=== PATIENT | female | born 1940 | race African-American/Black ===

== ENCOUNTER 2018-12-27 02:27 | Emergency (ER) | payer OTHER, MEDICAID ==
[~2018-12-27] VITALS: Ht 160 cm; Wt 73.0 kg
[2018-12-27] MEDS ORDERED: AMLODIPINE 10MG TABLET PO ONE (04:00)
[2018-12-27] MEDS ORDERED: ACETAMINOPHEN 325MG TABLET PO ONE (04:00)
[2018-12-27 06:40] VITALS: BP 145/95
== END 2018-12-27 07:05 | disposition home or self-care (01) ==
LOC: ER 02:27
DX: R51 Headache (principal); R00.2 Palpitations; I10 Essential (primary) hypertension; F03.90 Unspecified dementia, unspecified severity, without behavioral disturbance, psychotic disturbance, mood disturbance, and anxiety
CPT/HCPCS: 93005; 99283

== ENCOUNTER 2019-11-20 08:21 | Emergency (ER) | payer OTHER, MEDICAID ==
[~2019-11-20] VITALS: Ht 165.1 cm; Wt 68.0 kg
[2019-11-20] MEDS ORDERED: ACETAMINOPHEN 325MG TABLET PO STA (09:49)
[2019-11-20 10:12] LABS: BASOPHILS % 0.7 % (0.0-2.0); EOSINOPHILS % 6.3 % (0.0-5.0); HEMATOCRIT. 38.8 % (36.0-48.0); HEMOGLOBIN. 12.8 g/dL (12.0-16.0); LYMPHOCYTES % 32.4 % (20.0-50.0); MEAN CORPUSCULAR HEMOGLOBIN 30.3 pg (28.0-32.0); MEAN CORPUSCULAR VOLUME 91.8 fL (81.0-99.0); MEAN PLATELET VOLUME 8.3 fl (7.4-10.4); MONOCYTES % 9.9 % (2.0-8.0); NEUTROPHILS % 50.7 % (40.0-76.0); PLATELET 301 x1000/uL (130-400); RED BLOOD CELL COUNT 4.22 mill/uL (4.2-5.4); RED CELL DISTRIBUTION WIDTH 14.2 % (11.6-14.6)
[2019-11-20 10:15] LABS: CHLORIDE 106 mEq/L (98-107)
[2019-11-20] MEDS ORDERED: POTASSIUM CHLORIDE 20MEQ TABLET SR PO NR (11:09)
[2019-11-20] MEDS ORDERED: CEFTRIAXONE 1 G PREMIX 50 ML IV NR (11:09)
[2019-11-20] MEDS ORDERED: AZITHROMYCIN 500 MG in DEXT 5% WATER 250 ML IV NR (11:30)
[2019-11-20 14:31] VITALS: BP 184/88
== END 2019-11-20 14:55 | disposition short-term general hospital (02) ==
LOC: ER 08:21 → CANBEDREQ 14:50 → ER 14:55
DX: J18.9 Pneumonia, unspecified organism (principal); R07.9 Chest pain, unspecified; E87.6 Hypokalemia; I10 Essential (primary) hypertension; F03.90 Unspecified dementia, unspecified severity, without behavioral disturbance, psychotic disturbance, mood disturbance, and anxiety
CPT/HCPCS: 36415; 71045; 80053; 84484; 85025; 96365; 96366; 96368; 99285; J0456; J0696; J7060

== ENCOUNTER 2019-11-25 22:12 | Emergency (ER) | payer OTHER, MEDICAID ==
[~2019-11-25] VITALS: Ht 170.2 cm; Wt 82.0 kg
[2019-11-26 00:37] LABS: BASOPHILS % 0.4 % (0.0-2.0); EOSINOPHILS % 3.9 % (0.0-5.0); HEMATOCRIT. 34.1 % (36.0-48.0); HEMOGLOBIN. 11.3 g/dL (12.0-16.0); MEAN CORPUSCULAR HEMOGLOBIN 30.5 pg (28.0-32.0); MEAN CORPUSCULAR VOLUME 91.4 fL (81.0-99.0); MEAN PLATELET VOLUME 8.3 fl (7.4-10.4); MONOCYTES % 10.4 % (2.0-8.0); NEUTROPHILS % 70.3 % (40.0-76.0); PLATELET 293 x1000/uL (130-400); RED BLOOD CELL COUNT 3.72 mill/uL (4.2-5.4)
[2019-11-26 00:42] LABS: CHLORIDE 104 mEq/L (98-107)
[2019-11-26] MEDS ORDERED: POTASSIUM CHLORIDE 20MEQ TABLET SR PO ONE (01:00)
[2019-11-26 05:11] VITALS: BP 130/63
== END 2019-11-26 05:34 | disposition short-term general hospital (02) ==
LOC: ER 22:12
DX: S70.02XA Contusion of left hip, initial encounter (principal); R41.0 Disorientation, unspecified; M79.671 Pain in right foot; E87.6 Hypokalemia; I10 Essential (primary) hypertension; W18.30XA Fall on same level, unspecified, initial encounter; Y93.89 Activity, other specified; Y92.89 Other specified places as the place of occurrence of the external cause; Y99.8 Other external cause status
CPT/HCPCS: 36415; 71045; 73502; 73630; 80053; 83880; 84484; 85025; 93005; 99285

== ENCOUNTER 2022-04-17 00:01 | Emergency (ER) | payer OTHER, MEDICAID ==
[~2022-04-17] VITALS: Ht 162.6 cm; Wt 80.0 kg
[2022-04-17 03:05] LABS: CHLORIDE 108 mEq/L (98-107)
[2022-04-17 03:54] LABS: HEMATOCRIT 38.7 % (36.0-48.0); HEMOGLOBIN 11.6 g/dL (12.0-16.0); MEAN CORPUSCULAR HEMOGLOBIN 30.5 pg (28.0-32.0); MEAN CORPUSCULAR VOLUME 102.1 fL (81.0-99.0); PLATELET 166 x1000/uL (130-400); RED BLOOD CELL COUNT 3.79 mill/uL (4.2-5.4); RED CELL DISTRIBUTION WIDTH 15.6 % (11.6-14.6)
[2022-04-17 15:15] VITALS: BP 139/84
== END 2022-04-17 15:36 | disposition short-term general hospital (02) ==
LOC: ER 00:10
DX: S72.092A Other fracture of head and neck of left femur, initial encounter for closed fracture (principal); I10 Essential (primary) hypertension; F03.90 Unspecified dementia, unspecified severity, without behavioral disturbance, psychotic disturbance, mood disturbance, and anxiety; W01.0XXA Fall on same level from slipping, tripping and stumbling without subsequent striking against object, initial encounter; Y93.9 Activity, unspecified; Y92.9 Unspecified place or not applicable
CPT/HCPCS: 36415; 71045; 72170; 80053; 85027; 99285